=== PATIENT | female | born 1990 | race Caucasian/White ===

== ENCOUNTER 2018-02-27 07:31 | Emergency (ER) | payer MEDICAID ==
[~2018-02-27] VITALS: Ht 162.6 cm; Wt 78.5 kg
[2018-02-27 07:50] VITALS: Ht 162.6 cm; Wt 78.5 kg
[2018-02-27 08:38] LABS: microscopic required? NO
[2018-02-27 09:10] LABS: ALKALINE PHOSPHATASE 107 U/L (46-116); ALT/SGPT 27 U/L (14-59); AMYLASE 39 U/L (25-115); AST/SGOT 18 U/L (15-37); BILIRUBIN TOTAL 0.4 mg/dL (0.20-1.00); CALCIUM 8.7 mg/dL (8.5-10.1); CARBON DIOXIDE 27.5 mmol/L (21-32); CHLORIDE SERUM 105 mmol/L (98-107); CREATININE SERUM 0.8 mg/dL (0.6-1.0); GFR1 > 60 mL/min; GLUCOSE SERUM 93 mg/dL (74-106); LIPASE 69 IU/L (73-393); SODIUM SERUM 142 mmol/L (136-145); TOTAL PROTEIN, SERUM 7.3 g/dL (6.4-8.2)
[2018-02-27 09:12] LABS: BASOPHIL % 0.3 % (0-2); PLATELET COUNT 243 x10^3mcL (130-400); RED CELL DISTRIBUTION WIDTH 13.6 % (11.5-14.5)
[2018-02-27 09:37] LABS: urine erythrocyte NEGATIVE (NEGATIVE)
[2018-02-27 11:35] VITALS: BP 113/65
== END 2018-02-27 11:35 | disposition home or self-care (01) ==
LOC: ED 07:31
PROVIDERS: Emergency Medicine
DX: R10.31 Right lower quadrant pain (principal); R10.32 Left lower quadrant pain
CPT/HCPCS: 83880; J1885; J2405; J7030; Q9967